=== PATIENT | female | born 1985 | race Caucasian/White ===

== ENCOUNTER 2016-11-17 20:58 | Emergency (ER) | payer OTHER ==
--- NOTE | 2016-11-17 20:59 | PDOC ---
History of Present Illness - General History Source: Patient Exam Limitations: No Limitations - History of Present Illness Initial Comments: 11/17/16 21:14 The patient is a 31 year old female, employee at [employer], with significant past medical history of kidney stones who presents to the ED for sudden onset of left flank pain prior to arrival. Patient reports some left flank discomfort earlier today and then suddenly became worse prior to arrival. She describes pain as sharp, 10/10, and radiates to left lower quadrant. No reported urinary complaints. The patient denies fever, chills, cough, SOB, chest pain, and palpitations. The patient denies nausea, vomiting, and diarrhea. Allergies: NKDA Social History: No alcohol, tobacco, or drug use reported. Past Surgical History: None reported PCP: None reported <Cori Pond - Last Filed: 11/17/16 21:19> - General History Source: Patient <Andrew Patel - Last Filed: 11/18/16 00:04> - General Stated Complaint: FLANK PAIN Time Seen by Provider: 11/17/16 20:59 Past History <Cori Pond - Last Filed: 11/17/16 21:19> - Psycho/Social/Smoking Cessation Hx Anxiety: No Suicidal Ideation: No Smoking History: Never smoked Have you smoked in the past 12 months: No Hx Alcohol Use: No Substance Use Type: None <Andrew Patel - Last Filed: 11/18/16 00:04> - Past Medical History Allergies/Adverse Reactions: Allergies Allergy/AdvReac Type Severity Reaction Status Date / Time No Known Allergies Allergy Verified 11/17/16 21:02 Home Medications: Ambulatory Orders No Home Medications 0 dose .ROUTE UTDICT 05/02/13 Tamsulosin HCl [Flomax] 0.4 mg PO DAILY #7 capsule 11/18/16 Review of Systems - Review of Systems Able to Perform ROS?: Yes Comments:: 11/17/16 21:14 CONSTITUTIONAL: Absent: fever, no chills, no fatigue EYES: Absent: visual changes ENT: Absent: ear pain, no sore throat CARDIOVASCULAR: Absent: chest pain, no palpitations RESPIRATORY: Absent: cough, no SOB GI: Absent: no nausea, no vomiting, no constipation, no diarrhea GENITOURINARY: +left flank pain radiating to left lower quadrant Absent: dysuria, no frequency , no hematuria MUSCULOSKELETAL: Absent: back pain, no arthralgia, no myalgia SKIN: Absent: rash NEURO: Absent: headache <Cori Pond - Last Filed: 11/17/16 21:19> *Physical Exam - Vital Signs Last Vital Signs Temp Pulse Resp BP Pulse Ox 103 H 14 146/96 100 11/17/16 21:03 11/17/16 21:03 11/17/16 21:03 11/17/16 21:03 - Physical Exam Comments: 11/17/16 21:14 GENERAL: Well-appearing, well-nourished. No apparent distress. HEENT: Normocephalic, atraumatic. PERRL, EOM intact. CARDIOVASCULAR: Normal S1, S2. Regular rate and rhythm. PULMONARY: Clear to auscultation bilaterally. ABDOMEN: Soft, non-distended, non-tender. EXTREMITIES: Normal ROM in all four extremities. No gross deformities. SKIN: Warm, dry. No rash NEUROLOGICAL: No focal neurological deficits. <Cori Pond - Last Filed: 11/17/16 21:19> ED Treatment Course - LABORATORY CBC & Chemistry Diagram: 11/17/16 21:11 11/17/16 21:11 <oCri Pond - Last Filed: 11/17/16 21:19> - LABORATORY CBC & Chemistry Diagram: 11/17/16 21:11 11/17/16 21:11 <Andrew Patel - Last Filed: 11/18/16 00:04> Medical Decision Making - Medical Decision Making 11/18/16 00:02 Dr. Patel: The scribe's documentation has been prepared under my direction and personally reviewed by me in its entirery. I confirm that the note above accurately reflects all work, treatment, procedures, and medical decision making performed by me. Spoke to pt pcp Dr. Sandoval. He will make arrangements for Urrological evaluation and treatment <Andrew Patel - Last Filed: 11/18/16 00:04> *DC/Admit/Observation/Transfer - Attestations Scribe Attestion: 11/17/16 21:15 Documentation prepared by Cori Pond, acting as anesthesiology medical doctor for Andrew Patel MD/DO. 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
[2016-11-17] MEDS ORDERED: SODIUM CHLORIDE 1,000 ML IV STA (21:00)
[2016-11-17] MEDS ORDERED: KETOROLAC TROMETHAMINE 30 MG/1 ML VIAL IVPUSH ONE (21:00)
[2016-11-17] MEDS ORDERED: ONDANSETRON 4 MG/2 ML VIAL IVPUSH STA (21:00)
[2016-11-17] MEDS ORDERED: morphine CARPU-JECT 2 MG/1 ML DISP.SYRIN IVPB ONE (21:04)
[2016-11-17] MEDS ORDERED: morphine CARPU-JECT 4 MG/1 ML DISP.SYRIN ONE (21:05)
[2016-11-17 21:06] VITALS: BP 146/96; PULSE 103; BMI 25.4
[2016-11-17 21:20] LABS: EOSINOPHIL 3.5 % (0-4.5); MCH 27.6 pg (25.7-33.7); MCHC 32.9 g/dl (32.0-36.0); MEAN PLT VOLUME 8.7 fl (7.5-11.1); NEUTROPHILS 47.5 % (42.8-82.8); PLATELET COUNT 241 K/MM3 (134-434); RDW 13.1 % (11.6-15.6); WHITE BLOOD COUNT 8.4 K/mm3 (4.0-10.0)
[2016-11-17 22:14] LABS: ALBUMIN 4.3 g/dl (3.4-5.0); ALK PHOS 56 U/L (45-117); ANION GAP 13 (8-16); BILIRUBIN,TOTAL 1.1 mg/dL (0.2-1.0); CALCIUM 9.5 mg/dL (8.5-10.1); CO2 22 mmol/L (21-32); CREATININE 0.9 mg/dL (0.55-1.02); GLUCOSE,RANDOM 99 mg/dL (74-106); SGOT/AST 15 U/L (15-37); SGPT/ALT 19 U/L (12-78); TOT PROT 7.5 g/dl (6.4-8.2)
[2016-11-17] MEDS ORDERED: POTASSIUM CHLORIDE TABS 20 MEQ TABLET.ER (FP) PO ONE (22:16)
[2016-11-17 22:20] LABS: URINE APPEARANCE CLEAR; URINE BILIRUBIN NEGATIVE (NEGATIVE); URINE COLOR YELLOW; URINE GLUCOSE (UA) NEGATIVE (NEGATIVE); URINE KETONE 1+ (NEGATIVE); URINE LEUK ESTERASE NEGATIVE (NEGATIVE); URINE NITRITE NEGATIVE (NEGATIVE); URINE UROBILINOGEN NEGATIVE E.U./dl (0.2-1.0)
[2016-11-17 22:21] LABS: URINE BLOOD 3+ (NEGATIVE); URINE PROTEIN 1+ (NEGATIVE)
[2016-11-17 22:41] LABS: URINE MUCUS MANY; URINE RBC 196 /hpf (0-3); URINE WBC 4 /hpf (3-5)
[2016-11-17] MEDS ORDERED: morphine CARPU-JECT 2 MG/1 ML DISP.SYRIN IVPUSH ONE (23:25)
[2016-11-17] MEDS ORDERED: KETOROLAC TROMETHAMINE 60 MG/2 ML VIAL IM ONE (23:58)
[2016-11-17] MEDS ORDERED: KETOROLAC TROMETHAMINE 60 MG/2 ML VIAL ONE (23:59)
[2016-11-18] MEDS ORDERED: TAMSULOSIN HCL 0.4 MG CAP.ER.24H (FP) PO ONE (00:10)
[2016-11-18] MEDS ORDERED: TAMSULOSIN HCL 0.4 MG CAP.ER.24H (FP) ONE (00:14)
[2016-12-08 14:10] LABS: COLOR Brown (.)
== END 2016-11-18 00:20 | disposition home or self-care (01) ==
LOC: JER 20:58
PROC: 3E0333Z Introduction of Anti-inflammatory into Peripheral Vein, Percutaneous Approach (ICD-10-PCS; principal; 2016-11-17)
PROC: 3E0233Z Introduction of Anti-inflammatory into Muscle, Percutaneous Approach (ICD-10-PCS; 2016-11-17)
PROC: 3E033NZ Introduction of Analgesics, Hypnotics, Sedatives into Peripheral Vein, Percutaneous Approach (ICD-10-PCS; 2016-11-17)
PROC: 3E033GC Introduction of Other Therapeutic Substance into Peripheral Vein, Percutaneous Approach (ICD-10-PCS; 2016-11-17)
PROC: 3E0337Z Introduction of Electrolytic and Water Balance Substance into Peripheral Vein, Percutaneous Approach (ICD-10-PCS; 2016-11-17)
DX: Q62.0 Congenital hydronephrosis (principal); N20.0 Calculus of kidney
CPT/HCPCS: 36415; 74176; 80053; 81003; 81015; 82360; 84703; 85025; 99283-25

== ENCOUNTER 2016-11-18 15:14 | Day surgery (SDC) | payer OTHER ==
--- NOTE | 2016-11-18 15:19 | PDOC ---
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 The patient was found to have an obstructive 8 x 5 mm left ureteral stone. The patient states that she was instructed to come back to the ED today to receive a preoperative workup. PAST MEDICAL HISTORY: No significant history reported PAST SURGICAL HISTORY: No significant history reported FAMILY HISTORY: No pertinent history reported SOCIAL HISTORY: None reported ALLERGIES: As per nursing notes MEDICATIONS: Reviewed <Daniel Camacho - Last Filed: 11/18/16 15:36> - General Stated Complaint: ADMIN Time Seen by Provider: 11/18/16 15:18 Past History - Psycho/Social/Smoking Cessation Hx Anxiety: No Suicidal Ideation: No Smoking History: Never smoked Have you smoked in the past 12 months: No Hx Alcohol Use: No Drug/Substance Use Hx: No Substance Use Type: None <aCmi Vicente - Last Filed: 11/18/16 15:22> <Daniel Camacho - Last Filed: 11/18/16 15:36> - Past Medical History Allergies/Adverse Reactions: Allergies Allergy/AdvReac Type Severity Reaction Status Date / Time No Known Allergies Allergy Verified 11/17/16 21:02 Home Medications: Ambulatory Orders No Home Medications 0 dose .ROUTE UTDICT 05/02/13 Tamsulosin HCl [Flomax] 0.4 mg PO DAILY #7 capsule 11/18/16 Review of Systems - Review of Systems Able to Perform ROS?: Yes Comments:: 11/18/16 15:35 CONSTITUTIONAL: Absent: fever, chills, diaphoresis, generalized weakness, malaise, loss of appetite HEENT: Absent: rhinorrhea, nasal congestion, throat pain, throat swelling, difficulty swallowing, mouth swelling, ear pain, eye pain, visual Changes CARDIOVASCULAR: Absent: chest pain, syncope, palpitations, irregular heart rate, lightheadedness , peripheral edema RESPIRATORY: Absent: cough, shortness of breath, dyspnea with exertion, orthopnea, wheezing, stridor, hemoptysis GASTROINTESTINAL: Present: abdominal pain Absent: abdominal distension, nausea, vomiting, diarrhea, constipation, melena, hematochezia GENITOURINARY: Absent: dysuria, frequency, urgency, hesitancy, hematuria, flank pain, genital pain MUSCULOSKELETAL: Absent: myalgia, arthralgia, joint swelling SKIN: Absent: rash, itching, pallor HEMATOLOGIC/IMMUNOLOGIC: Absent: easy bleeding, easy bruising, lymphadenopathy, frequent infections ENDOCRINE: Absent: unexplained weight gain, unexplained weight loss, heat intolerance, cold intolerance NEUROLOGIC: Absent: headache, focal weakness or paresthesias, dizziness, unsteady gait, seizure, mental status changes, bladder or bowel incontinence PSYCHIATRIC: Absent: anxiety, depression, suicidal or homicidal ideation, hallucinations. <Daniel Camacho - Last Filed: 11/18/16 15:36> *Physical Exam - Physical Exam Comments: 11/18/16 15:35 GENERAL: Well developed, well nourished. Awake and alert. In no acute distress. HEENT: Normocephalic, atraumatic. PERRLA, EOMI. No conjunctival pallor. Sclera are non- icteric. Moist mucous membranes. Oropharynx is clear. NECK: Supple. Full ROM. No JVD. Carotid pulses 2+ and symmetric, without bruits. No thyromegaly. No lymphadenopathy. CARDIOVASCULAR: Regular rate and rhythm. No murmurs, rubs, or gallops. Distal pulses are 2+ and symmetric. PULMONARY: No evidence of respiratory distress. Lungs clear to auscultation bilaterally. No wheezing, rales or rhonchi. ABDOMINAL: (+) Soft. LLQ tenderness on palpation. Non-distended. No rebound or guarding. No organomegaly. Normoactive bowel sounds. MUSCULOSKELETAL Normal range of motion at all joints. No bony deformities or tenderness. No CVA tenderness. EXTREMITIES: No cyanosis. No clubbing. No edema. No calf tenderness. SKIN: Warm and dry. Normal capillary refill. No rashes. No jaundice. NEUROLOGICAL: Alert, awake, appropriate. Cranial nerves 2-12 intact. No deficits to light touch and temperature in face, upper extremities and lower extremities. No motor deficits in the in face, upper extremities and lower extremities. Normoreflexic in the upper and lower extremities. Normal speech. Toes are downgoing bilaterally. Gait is normal without ataxia. PSYCHIATRIC: Cooperative. Good eye contact. Appropriate mood and affect. <Daniel Camacho - Last Filed: 11/18/16 15:36> Medical Decision Making - Medical Decision Making 11/18/16 15:23 31-year-old female with history of nephrolithiasis presents to the emergency Department with complaints of left lower quadrant pain since last night; found to have an obstructive left ureteral stone and presents to the emergency department today for procedure. Plan: 1. Admit 2. Observe and re-evaluate <Cami Vicente - Last Filed: 11/18/16 15:22> *DC/Admit/Observation/Transfer - Discharge Dispostion Admit: Yes - Attestations Physician Attestion: 11/18/16 15:28 I, Dr. Cami Vicente, attest that the scribes documentation that appears above has been prepared under my direction and personally reviewed by me in its entirety. I confirmed that the note above accurately reflects all work, treatment, procedures, and medical decision-making performed by me. <Cami Vicente - Last Filed: 11/18/16 15:22> - Attestations Scribe Attestion: 11/18/16 15:35 Documentation prepared by Daniel Camacho, acting as medical secretary receptionist for Cami Vicente MD. <Daniel Camacho - Last Filed: 11/18/16 15:36> Diagnosis at time of Disposition: Kidney stone on left side - Discharge Dispostion Condition at time of disposition: Stable
[2016-11-18 16:15] VITALS: BMI 25.4
[2016-11-18] MEDS ORDERED: MIDAZOLAM HCL 2 MG/2 ML SINGLE DOSE VIAL ONE (17:40)
[2016-11-18] MEDS ORDERED: PROPOFOL 20 ML ONE ×3 (17:48)
[2016-11-18] MEDS ORDERED: LEVOFLOXACIN 500 MG IVPB 100 ML IVPB ONE (17:57)
[2016-11-18] MEDS ORDERED: LEVOFLOXACIN 750 MG IVPB ONE (17:59)
--- NOTE | 2016-11-18 18:35 | CONSULT ---
Consult - text type - Consultation Consultation Note: cc left renal colic hpi: patient seen in the ER and found to have a left hydronephrosis with an obstructing left distal [id number] ureteral stone with grade 4/5 hydroureteronephrosis. Patient is in severe pain and cannot maintain a diet. pe 01/[address] scan reviewed case discussed with Dr Sandoval and patient x30 minutes imp high grade left ureteral hydroureteronephrosis secondary to [id number] ureteral stone with inability to maintain a diet and severe intractable pain plan patient is emergently taken to the OR for stone removal to protect renal function, avoid sepsis, improve pain management, and allow for resumption of diet.
[2016-11-18] MEDS ORDERED: ONDANSETRON 4 MG/2 ML VIAL IVPUSH PRN (18:37)
[2016-11-18] MEDS ORDERED: oxyCODONE HCL 5 MG TABLET PO PRN (18:37)
[2016-11-18] MEDS ORDERED: ACETAMINOPHEN 325 MG TABLET (FP) PO PRN (18:37)
--- NOTE | 2016-11-18 18:38 | OP ---
Operative Note - Note: Operative Date: 11/18/16 Pre-Operative Diagnosis: left distal ureteral stone, high grade hydroureteronephrosis; renal colic with nausea and vomiting Operation: cystoscopy; left retrograde pyelogram; left ureteroscopic laser lithotripsy and stone basketing with left ureteral stent placement Findings: grade 4/5 hydroureteronephrosis with [id number] + distal stone Post-Operative Diagnosis: Same as Pre-op Surgeon: Massimo Cuba Anesthesia: General
[2016-11-18] MEDS ORDERED: LACTATED RINGERS SOLUTION 1,000 ML IV SCH (18:45)
[2016-11-18 19:21] VITALS: TEMP 97.8
[2016-11-18] MEDS ORDERED: ONDANSETRON 4 MG/2 ML VIAL ONE (19:22)
[2016-11-18 20:18] VITALS: BP 109/72; PULSE 54
--- NOTE | 2016-11-19 11:52 | OP ---
DATE OF OPERATION: 11/18/2016 PREOPERATIVE DIAGNOSIS: High-grade left hydroureteronephrosis with obstructing left renal stone. POSTOPERATIVE DIAGNOSIS: High-grade left hydroureteronephrosis with obstructing left renal stone. PROCEDURES: Cystoscopy. Left retrograde pyelogram. Left ureteroscopic laser lithotripsy. Left ureteroscopic stone basketing. Left stent placement. ATTENDING: Ky Mijares MD ANESTHESIA: General. The operation was as follows. The patient was brought in the operating room, placed in supine position on the operating room table. General anesthesia and antibiotics were administered preoperatively. The patient was then placed in the dorsal lithotomy position and prepped and draped in the usual sterile manner. The patient has a history of an obstructing 8 x 5-mm-plus left distal ureteral stone. The patient has a high-grade hydroureteronephrosis which is a 4/5. The patient has intractable, intermittent pain with inability to maintain a diet. The patient is emergently taken to the operating room to correct these symptoms, as well as to avoid damage to the kidney and possible urosepsis. All the risks and benefits were given to the patient. Cystoscopy is performed and no evidence of stone within the bladder is seen. A retrograde pyelogram shows an 8-plus-mm distal left ureteral stone. A high-grade hydroureteronephrosis consistent with 4/5 is noted. At this point, a wire is passed proximally. Ureteroscopy is then performed and the stone is seen under direct vision. A holmium laser was utilized and the stone is fragmented under direct vision. The stone fragments are then basketed under direct vision via the ureteroscope. With all significant stone fragments removed and sent to Pathology, ureteroscope was removed. A retrograde pyelogram showed no further stones within the ureter. High-grade hydroureteronephrosis was noted. The patient then had a 6-Pashto, 24-cm stent placed over the wire utilizing the Seldinger technique. No complications were noted. The patient tolerated the procedure very well. The disposition of the patient was to the recovery room. KY MIJARES M.D. /[id number]
--- NOTE | 2016-11-20 09:28 | PATH ---
Surgical Pathology Report Patient Name: INO REGAN [facility]. Rec. #: [id number] /Age/Gender: 1985 (Age: 31) / F Account: [id number] Location: AMBULATORY SURG Taken: 11/18/2016 Received: 11/19/2016 Reported: 11/20/2016 Physicians: Massimo Cuba Specimen(s) Received URETERAL STONES Clinical History Calculus of left kidney Final Diagnosis CALCULI, LEFT URETER, EXTRACTION: CALCULI SUBMITTED FOR CHEMICAL ANALYSIS (gross only). Electronically Signed Eris Brizuela M.D. Gross Description Received fresh, labeled "ureteral stones," is a 0.7 x 0.6 x 0.2 cm aggregate of black, fragmented calculi which are sent for chemical analysis. /11/19/201611/19/2016
== END 2016-11-18 20:15 | disposition home or self-care (01) ==
LOC: JER 15:14 → JASUSAT 15:29
PROVIDERS: ATTEND Emergency Medicine
PROC: BT1FYZZ Fluoroscopy of Left Kidney, Ureter and Bladder using Other Contrast (ICD-10-PCS; 2016-11-18)
PROC: 0TF48ZZ Fragmentation in Left Kidney Pelvis, Via Natural or Artificial Opening Endoscopic (ICD-10-PCS; principal; 2016-11-18 17:30)
PROC: 0TF78ZZ Fragmentation in Left Ureter, Via Natural or Artificial Opening Endoscopic (ICD-10-PCS; 2016-11-18 17:30)
PROC: 0T778DZ Dilation of Left Ureter with Intraluminal Device, Via Natural or Artificial Opening Endoscopic (ICD-10-PCS; 2016-11-18 17:30)
DX: N13.2 Hydronephrosis with renal and ureteral calculous obstruction (principal)
CPT/HCPCS: 76000-TC; 88300-TC; 94760; 99283-25

== ENCOUNTER 2020-10-23 10:33 | Emergency (ER) | payer OTHER ==
[2020-10-25 15:07] LABS: SARS-CoV-2 NAA Not Detected (Not Detected)
== END 2020-10-23 13:59 | disposition home or self-care (01) ==
LOC: JVIRT 10:33
DX: Z20.822 Contact with and (suspected) exposure to COVID-19 (principal)
CPT/HCPCS: C9803; G2251-GT; Q3014-GT; U0003; U0005

== ENCOUNTER 2021-05-23 13:02 | Emergency (ER) | payer BC, OTHER | END 2021-05-23 14:53 | disposition home or self-care (01) | LOC: JVIRT 13:02 | DX: R09.81 Nasal congestion (principal); Z20.822 Contact with and (suspected) exposure to COVID-19 | CPT/HCPCS: 87804; 87807; C9803; Q3014-GT; U0003; U0005 ==

== ENCOUNTER 2021-05-29 09:01 | Emergency (ER) | payer BC | END 2021-05-29 10:55 | disposition home or self-care (01) | LOC: JVIRT 09:01 | DX: Z11.52 Encounter for screening for COVID-19 (principal); Z20.822 Contact with and (suspected) exposure to COVID-19 | CPT/HCPCS: C9803; Q3014-GT; U0003; U0005 ==

== ENCOUNTER 2021-06-08 17:22 | Emergency (ER) | payer BC | END 2021-06-08 17:29 | disposition home or self-care (01) | LOC: JVIRT 17:22 | DX: Z20.822 Contact with and (suspected) exposure to COVID-19 (principal) | CPT/HCPCS: C9803-CS; Q3014-GT; U0003; U0005 ==

== ENCOUNTER 2021-06-22 15:54 | Emergency (ER) | payer BC ==
[2021-06-22 16:24] LABS: EOS % 1.9 % (0-4.5); HEMATOCRIT 41.3 % (32.4-45.2); HEMOGLOBIN 13.8 GM/dL (10.7-15.3); LYMPH % 33.3 % (8-40); MCH 27.5 pg (25.7-33.7); MCHC 33.5 g/dl (32.0-36.0); MEAN PLT VOLUME 7.8 fl (7.5-11.1); MONO % 5.9 % (3.8-10.2); NEUT % 57.9 % (42.8-82.8); PLATELET COUNT 323 10^3/uL (134-434); RBC 5.04 M/mm3 (3.60-5.2); RDW 13.5 % (11.6-15.6); WHITE BLOOD COUNT 7.7 K/mm3 (4.0-10.0)
[2021-06-22 16:53] LABS: CALCIUM 9.4 mg/dL (8.5-10.1)
[2021-06-22 16:56] LABS: CREATININE 0.6 mg/dL (0.55-1.3)
[2021-06-22 16:57] LABS: TOT PROT 7.7 g/dl (6.4-8.2)
[2021-06-22 16:58] LABS: BILIRUBIN,TOTAL 0.3 mg/dL (0.2-1)
== END 2021-06-22 16:19 | disposition home or self-care (01) ==
LOC: JVIRT 15:54
DX: R53.83 Other fatigue (principal)
CPT/HCPCS: 36415; 80053; 82306; 82607; 82746; 83540; 83550; 84439; 84443; 85025; 99281-25; Q3014-GT

== ENCOUNTER 2023-05-06 16:27 | Emergency (ER) | payer BC ==
[2023-05-06 16:31] VITALS: BP 120/72; PULSE 80; RESP 18; TEMP 98.2; BMI 31.1
[2023-05-06] MEDS ORDERED: DEXAMETHASONE SOD PHOSPHATE 10 MG/1 ML VIAL IM ONE (16:45)
[2023-05-06] MEDS ORDERED: DEXAMETHASONE SOD PHOSPHATE 10 MG/1 ML VIAL ONE (16:46)
== END 2023-05-06 18:16 | disposition home or self-care (01) ==
LOC: JERFT 16:27
PROC: 3E023GC Introduction of Other Therapeutic Substance into Muscle, Percutaneous Approach (ICD-10-PCS; principal; 2023-05-06)
DX: R07.0 Pain in throat (principal); R09.81 Nasal congestion
CPT/HCPCS: 87651; 99284-25; J1100